=== PATIENT | male | born 1975 | race African-American/Black ===

== ENCOUNTER 2018-11-08 16:18 | Emergency (ER) | payer BC ==
[2018-11-08] MEDS ORDERED: SODIUM CHLORIDE 0.9% 1,000 ML IV STA (16:46)
--- NOTE | 2018-11-08 16:47 | ED ---
Chest Pain HPI - General Chief Complaint: Chest Pain Stated Complaint: Previous chest pains sent by Dr Time Seen by Provider: 11/08/18 16:46 Source: patient, RN notes reviewed, old records reviewed Mode of arrival: ambulatory Limitations: no limitations - History of Present Illness Initial Comments: This is a 42-year-old male the ER with chest pain, chest pain is atypical in nature. Patient has no history of heart disease. Patient was sent in by urgent care for evaluation patient does have history of diabetes nonsmoker no high cholesterol no high blood pressure, no strong family history of heart disease. Patient had chest pain and tightness last night no chest pain today. MD Complaint: chest pain - Related Data Home Medications Medication Instructions Recorded Confirmed Semaglutide [Ozempic] 0.5 mg SQ TU 11/08/18 11/08/18 metFORMIN HCL 1,000 mg PO BID 11/08/18 11/08/18 Allergies Allergy/AdvReac Type Severity Reaction Status Date / Time No Known Allergies Allergy Verified 11/08/18 16:55 Review of Systems ROS Statement: Those systems with pertinent positive or pertinent negative responses have been documented in the HPI. ROS Other: All systems not noted in ROS Statement are negative. EKG Findings - EKG Comments: EKG Findings:: EKG shows sinus rhythm rate of 70, MI 154, QRS 70, QTc 399 Past Medical History Past Medical History: Diabetes Mellitus History of Any Multi-Drug Resistant Organisms: None Reported Past Surgical History: No Surgical Hx Reported Past Psychological History: No Psychological Hx Reported Smoking Status: Current every day smoker Past Alcohol Use History: Occasional Past Drug Use History: Marijuana General Exam Limitations: no limitations General appearance: alert, in no apparent distress Head exam: Present: atraumatic, normocephalic, normal inspection Eye exam: Present: normal appearance, PERRL, EOMI. Absent: scleral icterus, conjunctival injection, periorbital swelling ENT exam: Present: normal exam, mucous membranes moist Neck exam: Present: normal inspection. Absent: tenderness, meningismus, lymphadenopathy Respiratory exam: Present: normal lung sounds bilaterally. Absent: respiratory distress, wheezes, rales, rhonchi, stridor Cardiovascular Exam: Present: regular rate, normal rhythm, normal heart sounds. Absent: systolic murmur, diastolic murmur, rubs, gallop, clicks GI/Abdominal exam: Present: soft, normal bowel sounds. Absent: distended, tenderness, guarding, rebound, rigid Extremities exam: Present: normal inspection, full ROM, normal capillary refill. Absent: tenderness, pedal edema, joint swelling, calf tenderness Back exam: Present: normal inspection Neurological exam: Present: alert, oriented X3, CN II-XII intact Psychiatric exam: Present: normal affect, normal mood Skin exam: Present: warm, dry, intact, normal color. Absent: rash Course Vital Signs 11/08/18 11/08/18 11/08/18 16:35 16:37 17:25 Temperature 98.6 F Pulse Rate 64 75 Pulse Rate [ 69 [employer] ] Respiratory 18 20 Rate Blood Pressure 115/73 121/85 O2 Sat by Pulse 98 98 Oximetry 11/08/18 20:54 Temperature 98.3 F Pulse Rate 78 Pulse Rate [ [employer] ] Respiratory 18 Rate Blood Pressure 133/79 O2 Sat by Pulse 97 Oximetry - Reevaluation(s) Reevaluation #1: Medical record reviewed no current chest pain Chest Pain MDM - MDM 39 female the ER with atypical chest pain currently no chest pain on presentation to emergency room or throughout ER stay. He does have history of diabetes made aware that he has cardiac risk factors, does not want stay in the hospital for further cardiology evaluation, patient has normal EKG normal troponin and a CT angi0 chest negative here in the ER Disposition Clinical Impression: Chest pain, Atypical chest pain Disposition: HOME SELF-CARE Condition: Good Instructions (If sedation given, give patient instructions): Chest Pain (ED) Is patient prescribed a controlled substance at d/c from ED?: No Referrals: Zeferino Grace MD [Primary Care Provider] - 1-2 days
[2018-11-08 17:26] LABS: Basophils # (A) 0.1 k/uL (0-0.2); Basophils % (A) 1 %; Eosinophils # (A) 0.4 k/uL (0-0.7); Eosinophils % (A) 4 %; HCT 47.4 % (39.0-53.0); HGB 16.2 gm/dL (13.0-17.5); Lymphocytes # (A) 2.4 k/uL (1.0-4.8); Lymphocytes % (A) 26 %; MCHC 34.3 g/dL (31.0-37.0); MCV 87.6 fL (80.0-100.0); Mean Platelet Volume 6.8; Monocytes # (A) 0.5 k/uL (0-1.0); Monocytes % (A) 6 %; Neutrophils # (A) 5.7 k/uL (1.3-7.7); Neutrophils % (A) 61 %; Platelet Count 209 k/uL (150-450); RBC 5.41 m/uL (4.30-5.90); RDW 12.5 % (11.5-15.5); WBC 9.3 k/uL (3.8-10.6)
[2018-11-08 17:35] LABS: Partial Thromboplastin Time 25.5 sec (22.0-30.0); Prothrombin Time 10.3 sec (9.0-12.0)
[2018-11-08 17:38] LABS: ALT 28 U/L (21-72); AST 17 U/L (17-59); Albumin 4.4 g/dL (3.5-5.0); Alkaline Phosphatase 55 U/L (38-126); Anion Gap 8 mmol/L; Blood Urea Nitrogen 13 mg/dL (9-20); Calcium 9.9 mg/dL (8.4-10.2); Carbon Dioxide 25 mmol/L (22-30); Chloride 106 mmol/L (98-107); Glucose 173 mg/dL (74-99); Lipase 289 U/L (23-300); Magnesium 1.6 mg/dL (1.6-2.3); Sodium 139 mmol/L (137-145); Total Bilirubin 1.2 mg/dL (0.2-1.3); Total Protein 6.8 g/dL (6.3-8.2)
--- NOTE | 2018-11-08 18:46 | CT ---
EXAMINATION TYPE: CT angio chest DATE OF EXAM: 11/08/2018 6:33 PM COMPARISON: None HISTORY: Chest pain. CT DLP: 347.4 mGycm Automated exposure control for dose reduction was used. CONTRAST: CTA scan of the thorax is performed with IV Contrast, patient injected with 45ml mL of Isovue 370, pu lmonary embolism protocol. There are 3-D post processed images.. FINDINGS: There is 5 mm subpleural noncalcified low-density nodule in the posterior right upper lobe. There is no evidence of a pulmonary mass. There is no pleural effusion. Lungs are clear of infiltrate. Heart s ize is normal. There is no pericardial effusion. There is no mediastinal adenopathy. There are no hilar masses. Thoracic aorta appears normal. There i s no aneurysm or dissection. There is normal contrast opacification of the pulmonary arteries. I see no filling defect. IMPRESSION: NEGATIVE CT ANGIOGRAM OF THE CHEST. NO EVIDENCE OF PULMONARY EMBOLISM. SMALL RIGHT UPPER LOBE PARASPI NAL SUBPLEURAL NODULE OF DOUBTFUL SIGNIFICANCE.
[2018-11-08] MEDS ORDERED: diphenhydrAMINE 50 MG/ML 1 ML VIAL IVP STA (19:35)
[2018-11-08] MEDS ORDERED: methylPREDNISolone SOD SUCCI 125 MG/2 ML VIAL IV STA (19:35)
[2018-11-08] MEDS ORDERED: FAMOTIDINE 20 MG/2 ML VIAL IV STA (19:37)
[2018-11-08 20:55] VITALS: BP 133/79; PULSE 78; RESP 18; TEMP 98.3
[2018-11-08] MEDS ORDERED: FAMOTIDINE 20 MG TAB PO SCH (21:00)
[2018-11-09] MEDS ORDERED: FAMOTIDINE 20 MG TAB PO SCH (09:00)
== END 2018-11-08 20:56 | disposition home or self-care (01) ==
LOC: EC 16:18
DX: R07.89 Other chest pain (principal); E11.9 Type 2 diabetes mellitus without complications; F17.200 Nicotine dependence, unspecified, uncomplicated; Z79.84 Long term (current) use of oral hypoglycemic drugs; Z79.899 Other long term (current) drug therapy
CPT/HCPCS: 36415; 93005; 83880; 80053; 83690; 83735; 84484; 85025; 85610; 85730; 71275; 99285; 96374; 96375 ×2; 96361 ×2; J1200; J2930; Q9967

== ENCOUNTER → 2024-01-08 | Outpatient (CLI) | payer MEDICARE ==
[2024-01-08 14:33] LABS: African American GFR (CKD) >90 (>60 ml/min/1.73 sqM); Blood Urea Nitrogen 13 mg/dL (9-20); Non-African American GFR(CKD) 79 (>60 ml/min/1.73 sqM)
[2024-01-08] MEDS: diphenhydrAMINE 50 MG CAP PO STA (16:05)
[2024-01-08 16:21] VITALS: RESP 16
[2024-01-08 16:54] VITALS: BP 117/65; PULSE 70
--- NOTE | 2024-01-08 22:03 | CT ---
EXAMINATION TYPE: CT ChestAbdPelvis w con DATE OF EXAM: 01/08/2024 COMPARISON: CT chest 11/08/2018 HISTORY: 48-year-old male abdominal pain and weight loss. E11.65 TYPE 2 DIABETES MELLITUS WITH HYPER GLYCEMIA TECHNIQUE: Contiguous axial scanning of the chest, abdomen, and pelvis performed with IV Contrast, pa tient injected with 100 mL of Isovue 300. Delayed images through the kidneys were obtained. Coronal/s agittal reconstructions performed. CT DLP: 1340 mGycm Automated exposure control for dose reduction was used. FINDINGS: Chest: The heart is normal size without pericardial effusion. Aorta normal caliber with conventional branching anatomy. No thoracic lymphadenopathy by CT size. Lungs show no consolidation or pleural effusion. Some strandy atelectasis is present at the lower yesika gs. ABDOMEN: There is a small hiatal hernia present. Some soft tissue thickening is noted at GE junction and gastr ic fundus just below, axial and 57 through 59 and no focal liver lesion or biliary dilatation. Portal venous system is patent. Gallbladder is collapsed. Adrenal glands, kidneys, spleen, and pancreas within normal limits. No dilated small bowel, free fluid, or free air. No mesenteric or retroperitoneal lymphadenopathy. Normal appendix. Oral contrast progressed to the proximal third transverse colon. There is moderate s tool burden. No pericolonic inflammatory change. Pelvis: Bladder urine distended. Prostate gland is enlarged measuring 5.8 cm wide. Motion artifact here in th e pelvis. No abnormal fluid collection in the pelvis or pelvic lymphadenopathy. Bones: Prominent motion artifact at the hips and pelvis. Mild degenerative spurring right SI joint. No osseo us destructive process. Slight dextroconvex curvature centered along the mid thoracic spine. IMPRESSION: 1. MODERATE MURAL THICKENING AT THE GE JUNCTION AND WITHIN THE GASTRIC FUNDUS JUST BELOW. FINDINGS MA Y BE DUE TO A SMALL HIATAL HERNIA AND SOFT TISSUE CROWDING. GASTRITIS OR UNDERLYING NEOPLASM NOT EXCL UDED. CORRELATE FOR ANY ASSOCIATED SYMPTOMS. DIRECT VISUALIZATION IF INDICATED. 2. PROSTATOMEGALY AT 5.8 CM WIDE. CORRELATE WITH PATIENT'S SYMPTOMS AND PSA VALUES.
== END | disposition home or self-care (01) ==
LOC: RADCTMAIN 13:57
PROVIDERS: ATTEND Family Medicine
DX: E11.65 Type 2 diabetes mellitus with hyperglycemia (principal); N40.0 Benign prostatic hyperplasia without lower urinary tract symptoms; R63.0 Anorexia; K44.9 Diaphragmatic hernia without obstruction or gangrene; R63.4 Abnormal weight loss; K22.89 Other specified disease of esophagus
CPT/HCPCS: 82565; 84520; 71260; 74177; 36415; Q9967

== ENCOUNTER 2024-03-21 09:15 | Day surgery (SDC) | payer MEDICARE, OTHER ==
[2024-03-20 10:22] VITALS: BMI 23.7
[2024-03-21 09:44] VITALS: RESP 16; TEMP 97.4
[2024-03-21] MEDS: IV FLUID CONTINUATION 1,000 ML IV ONE (09:52)
[2024-03-21] MEDS: LACTATED RINGERS 1,000 ML IV SCH (09:52)
[2024-03-21 10:11] LABS: Glucose,Whole Blood 212 mg/dL (70-110)
[2024-03-21] MEDS ORDERED: PROPOFOL 10 MG/ML 20 ML VIAL IV ONE (10:12)
[2024-03-21] MEDS ORDERED: LIDOCAINE 2% (PF) 20 MG/ML 5 ML VIAL ONE (10:12)
--- NOTE | 2024-03-21 10:18 | P.GSHP ---
History of Present Illness H&P Date: 03/21/24 Chief Complaint: Decreased appetite, weight loss, screening colonoscopy, gerd Is a 48-year-old male whose had complaints of weight loss decreased appetite gerd. He presents today for EGD and screening colonoscopy. Past Medical History Past Medical History: Diabetes Mellitus, Hyperlipidemia History of Any Multi-Drug Resistant Organisms: None Reported Past Surgical History: No Surgical Hx Reported Past Anesthesia/Blood Transfusion Reactions: No Reported Reaction Additional Past Anesthesia/Blood Transfusion Reaction / Comment(s): no blood transfusion Smoking Status: Current every day smoker Medications and Allergies Home Medications Medication Instructions Recorded Confirmed Type metFORMIN HCL [Glucophage] 750 mg PO BID 11/08/18 03/20/24 History Atorvastatin [Lipitor] 20 mg PO HS 03/20/24 03/20/24 History Allergies Allergy/AdvReac Type Severity Reaction Status Date / Time Iodinated Contrast Media Allergy Rash/Hives Verified 03/21/24 09:38 Surgical - Exam Vital Signs Temp Pulse Resp BP Pulse Ox 97.4 F L 76 16 118/75 99 03/21/24 09:43 03/21/24 09:43 03/21/24 09:43 03/21/24 09:43 03/21/24 09:43 - General well developed, well nourished, no distress - Eyes PERRL - ENT normal pinna - Neck no masses - Respiratory normal expansion - Cardiovascular Rhythm: regular - Abdomen Abdomen: soft, non tender Results - Labs Abnormal Lab Results - Last 24 Hours (Table) 03/21/24 Range/Units 10:01 POC Glucose (mg/dL) 212 H (70-110) mg/dL Assessment and Plan Assessment: Decreased appetite, weight loss, gerd. Will perform EGD and screening colonoscopy.
--- NOTE | 2024-03-21 10:44 | P.OP ---
Date of Procedure: 03/21/24 Preoperative Diagnosis: Weight loss Decreased appetite Screening colonoscopy Gerd Postoperative Diagnosis: Antral gastritis Friable esophageal mass 40 cm Normal colon Procedure(s) Performed: EGD Colonoscopy Anesthesia: MAC Surgeon: Bunny Lozada Pathology: other (Rectum esophagus) Condition: stable Disposition: PACU Description of Procedure: Patient was placed on the endoscopy table in the lateral position. He received IV sedation. The gas was placed oropharynx passed in the esophagus. At the lower esophagus there was a friable mass. The scope was placed through the GE junction into the stomach. Through the pylorus. The first and second portion of duodenum appeared normal. Scope was brought back to the antrum this was minimal Flaim. A biopsy was performed. The scope then retroflexed and the Mainer of the stomach appeared normal. Just above the GE junction the patient evidence of mucosal erosions. This was biopsied. The mucosa appeared to be edematous and very friable. The remainder of the esophagus appeared normal. The GE junction was at 40 cm. The scope was withdrawn. Next digital rectal send performed. Which revealed no abnormalities. The flexible colonoscope was then placed patient anus and passed throughout the entire colon. The ileocecal valve was visualized. The cecum, ascending and transverse colon appeared normal. The descending and sigmoid colon appeared normal. The scope was withdrawn from the patient.
[2024-03-21 10:56] LABS: Glucose,Whole Blood 185 mg/dL (70-110)
[2024-03-21 11:19] VITALS: BP 134/89; PULSE 71
== END 2024-03-21 11:50 | disposition home or self-care (01) ==
LOC: ORWHC2ENDO 09:15
PROVIDERS: ATTEND Surgery
DX: Z12.11 Encounter for screening for malignant neoplasm of colon (principal); K29.50 Unspecified chronic gastritis without bleeding; C15.9 Malignant neoplasm of esophagus, unspecified; K21.9 Gastro-esophageal reflux disease without esophagitis; E11.69 Type 2 diabetes mellitus with other specified complication; E78.5 Hyperlipidemia, unspecified; F41.9 Anxiety disorder, unspecified; Z91.041 Radiographic dye allergy status; Z87.891 Personal history of nicotine dependence; Z79.84 Long term (current) use of oral hypoglycemic drugs; Z79.899 Other long term (current) drug therapy
CPT/HCPCS: 43239; 45378; 88305; 88341; 88342

== ENCOUNTER → 2024-04-12 | Outpatient (CLI) | payer OTHER | END | disposition home or self-care (01) | LOC: RADPETMAIN 10:57 | PROVIDERS: ATTEND Family Medicine | DX: Z53.9 Procedure and treatment not carried out, unspecified reason (principal) ==

== ENCOUNTER 2024-05-06 11:25 | Day surgery (SDC) | payer MEDICARE, OTHER ==
[~2024-05-06 11:25] MED LIST: HYDROmorphone 0.5 MG/0.5 ML SYRINGE IVP PRN; Pre Op ABX Message 1 EACH MISC MISCELLANE ONE
[2024-05-06] MEDS: LACTATED RINGERS 1,000 ML IV SCH (12:20)
[2024-05-06] MEDS: IV FLUID CONTINUATION 1,000 ML IV ONE ×3 (12:20→13:46)
[2024-05-06] MEDS: LIDOCAINE 1% (10MG/ML) FOR IV START INTRADERMA PRN (12:20)
[2024-05-06] MEDS: INSULIN ASPART (NovoLOG) 100 UNIT/ML VIAL SQ ONE (12:32)
[2024-05-06] MEDS: ONDANSETRON 4 MG/2 ML VIAL IVP ONE (12:34)
[2024-05-06 12:40] LABS: Glucose,Whole Blood 263 mg/dL (70-110)
[2024-05-06] MEDS ORDERED: ePHEDrine 50 MG/ML 1 ML VIAL ONE (13:04)
[2024-05-06] MEDS ORDERED: PROPOFOL 10 MG/ML 20 ML VIAL IV ONE (13:04)
[2024-05-06] MEDS ORDERED: fentaNYL (PF) 50 MCG/ML 2 ML AMP ONE (13:04)
[2024-05-06] MEDS ORDERED: LIDOCAINE 1% INJ 10MG/ML (20 ML MDV) ONE (13:04)
[2024-05-06] MEDS ORDERED: MIDAZOLAM 2 MG/2 ML VIAL ONE (13:04)
[2024-05-06] MEDS: SODIUM CHLORIDE 0.9% 50 ML with ceFAZolin 2 GM IV ONE (13:16)
[2024-05-06] MEDS: BUPIVACAINE (PF) 0.25% 30 ML VIAL SQ ONE ×2 (13:26)
[2024-05-06] MEDS: HEPARIN SODIUM,PORCINE 100 UNIT/ML 5 ML VIAL IV ONE (13:26)
[2024-05-06 14:18] VITALS: TEMP 96.9
--- NOTE | 2024-05-06 14:23 | P.OP ---
Date of Procedure: 05/06/24 Preoperative Diagnosis: Esophageal CA Postoperative Diagnosis: Esophageal CA Procedure(s) Performed: Mediport with fluoroscopy Anesthesia: MAC Surgeon: Maru Rodríguez Pathology: none sent Condition: stable Disposition: same day Indications for Procedure: 48-year-old male presents today for Mediport placement with fluoroscopy. 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 After consultation with oncologist, plan is for chemotherapy induction. Risks, benefits and alternatives were provided to the patient. Consent was provided prior to attending the operating suite. Operative Findings: Appropriate flush and withdrawal from port site Description of Procedure: Patient was brought to the operating suite and placed in supine position on the operative table. Sedation was provided by anesthesia and the patient underwent LMA placement. Patient was then prepped and draped in regular sterile fashion. Right subclavian vein was accessed on first attempt and dark nonpulsatile blood was withdrawn. Guidewire was placed and confirmation under fluoroscopy was noted. At this point, a pocket was created just below the guidewire insertion site dilator sheath was then placed over the guidewire with catheter placed over it. Dilator sheath removed and catheter attached to port and placed in port pocket. Appropriate flush and withdrawal with saline was noted from the port and the port was secured to the prepectoralis fascia using 2-0 Prolene suture x 2. At this point Hep-Lock was introduced and appropriate flush and withdrawal was continued to be noted. Confirmation was noted under fluoroscopy that there were no kinks in the catheter. The wound was then closed with 3-0 Vicryl and 4- 0 Monocryl suture. Sterile dressing was applied. The patient was awakened in the operating suite and taken to postanesthesia care unit in stable condition.
[2024-05-06 14:29] LABS: Glucose,Whole Blood 175 mg/dL (70-110)
[2024-05-06] MEDS: hydrALAZINE HCL 20 MG/ML 1 ML VIAL IVP STA (14:43)
--- NOTE | 2024-05-06 15:10 | XR ---
EXAMINATION TYPE: XR chest 1V portable DATE OF EXAM: 05/06/2024 Comparison: None Clinical History: 48-year-old male Mediport placement Findings: Right anterior chest wall injection port with subclavian access and catheter tip at the upper SVC lev el. No residual pneumothorax. Heart borderline in size. Mild interstitial prominence may be chronic f or the patient. No alyo consolidation or pleural effusion. Impression: Right anterior chest wall injection port with subclavian access and catheter tip at the upper SVC lev el. Mild interstitial prominence; correlate to exclude mild pulmonary vascular congestion. [facility], , 05/06/2024 3:08 PM
[2024-05-06 15:46] VITALS: BP 123/78; PULSE 93; RESP 18
--- NOTE | 2024-05-07 08:36 | FL ---
EXAMINATION TYPE: FL guided central line placemt DATE OF EXAM: 05/06/2024 2:00 PM COMPARISON: Pre Operative Images if available both CT/MRI or plain film CLINICAL INDICATION: Male, 48 years old with history of ESOPHAGEAL CA; TECHNIQUE: FL guided central line placemt, multiple fluoroscopic images provided for procedure. Total fluoroscopy time: 16.3 seconds Total submitted images to PACS: 1 DAP: [id number] mGym2 Gycm2 uGym2 cGycm2 or equivalent. FINDINGS: Fluoroscopic imaging for Port-A-Cath insertion no evidence for pneumothorax. Multilevel degeneration changes of the spine. IMPRESSION: 1. No evidence for intraoperative complication. 2. Please see the operative/procedural note for further details. [facility], , 05/07/2024 8:33 AM
== END 2024-05-06 16:12 | disposition home or self-care (01) ==
LOC: OR 11:25
PROVIDERS: ATTEND Surgery
CPT/HCPCS: 71045; 77001

== ENCOUNTER → 2024-05-14 | Outpatient (CLI) | payer MEDICARE ==
--- NOTE | 2024-05-14 16:40 | CA ---
Transthoracic Echo Report Name: Zeferino Cardensa Age: 48 Gender: M : 1975 Exam Date: 05/14/2024 13:15 Exam Location: [facility] Ht (in): 73 Wt (lb): 170 Ordering Physician: Jorge Vidal MD Attending/Referring Phys: Jorge Vidal MD Director Title Mary Ellison RDCS Procedure CPT: Indications: Z01.818 ENCOUNTER FOR OTHER PREPROCEDURAL EXAMINAT Cardiac Hx: Technical Quality: Fair Contrast 1: Total Dose (mL): Contrast 2: Total Dose (mL): MEASUREMENTS (Male / Female) Normal Values 2D ECHO LV Diastolic Diameter PLAX 4.0 cm 4.2 - 5.9 / 3.9 - 5.3 cm LV Systolic Diameter PLAX 3.0 cm IVS Diastolic Thickness 1.0 cm 0.6 - 1.0 / 0.6 - 0.9 cm LVPW Diastolic Thickness 1.0 cm 0.6 - 1.0 / 0.6 - 0.9 cm LV Relative Wall Thickness 0.5 RV Internal Dim ED PLAX 2.6 cm LA Systolic Diameter LX 2.9 cm 3.0 - 4.0 / 2.7 - 3.8 cm LV Diastolic Volume MOD BP 64.4 cm??? 67 - 155 / 56 - 104 cm??? LV Systolic Volume MOD BP 32.4 cm??? 22 - 58 / 19 - 49 cm??? LV Ejection Fraction MOD BP 49.7 % >= 55 % LV Cardiac Index MOD BP 1445.9 cm???/min???m??? LV Diastolic Volume MOD 4C 54.8 cm??? LV Systolic Volume MOD 4C 28.2 cm??? LV Ejection Fraction MOD 4C 48.5 % LV Cardiac Index MOD 4C 1199.6 cm???/min???m??? LV Diastolic Length 4C 7.5 cm LV Systolic Length 4C 6.5 cm LV Diastolic Volume MOD 2C 72.6 cm??? LV Systolic Volume MOD 2C 42.8 cm??? LV Ejection Fraction MOD 2C 41.1 % LV Cardiac Index MOD 2C 1347.6 cm???/min???m??? LV Diastolic Length 2C 7.9 cm LV Systolic Length 2C 7.4 cm LA Volume 30.3 cm??? 18 - 58 / 22 - 52 cm??? LA Volume Index 15.2 cm???/m??? 16 - 28 cm???/m??? M-MODE Aortic Root Diameter MM 2.6 cm LA Systolic Diameter MM 3.1 cm LA Ao Ratio MM 1.2 AV Cusp Separation MM 1.8 cm DOPPLER AV Peak Velocity 103.7 cm/s AV Peak Gradient 4.3 mmHg AV Mean Velocity 76.1 cm/s AV Mean Gradient 2.6 mmHg AV Velocity Time Integral 17.5 cm LVOT Peak Velocity 90.2 cm/s LVOT Peak Gradient 3.3 mmHg LVOT Velocity Time Integral 18.2 cm MV Area PHT 3.1 cm??? Mitral E Point Velocity 37.3 cm/s Mitral A Point Velocity 68.3 cm/s Mitral E to A Ratio 0.5 MV Deceleration Time 246.7 ms TR Peak Velocity 182.6 cm/s TR Peak Gradient 13.3 mmHg FINDINGS Left Ventricle Left ventricular ejection fraction is estimated at 50 %.Mildly increased left ventricular wall thickness. Left ventricular cavity size normal. Mildly decreased left ventricular ejection fraction. Right Ventricle Mild right ventricular dilatation. Right ventricular systolic pressure within normal limits. Right Atrium Mild right atrial dilatation. Left Atrium Mild left atrial dilatation. Mitral Valve Structurally normal mitral valve. Mild mitral regurgitation. No mitral stenosis. Aortic Valve Trileaflet aortic valve. No aortic stenosis. No aortic regurgitation. Tricuspid Valve Structurally normal tricuspid valve. Mild tricuspid regurgitation. No tricuspid stenosis. Pulmonic Valve No pulmonic stenosis. Trace pulmonic regurgitation. No pulmonic stenosis. Pericardium No pericardial or pleural effusion. Aorta Normal size aortic root and proximal ascending aorta. CONCLUSIONS Ejection fraction is 50% Mild RV dilatation Mild mitral and tricuspid regurgitation Previewed by: Dr. Cesario Archer MD (Electronically Signed) Final Date: 14 May 2024 16:39
== END | disposition home or self-care (01) ==
LOC: RADECHMAIN 13:03
PROVIDERS: ATTEND Internal Medicine Hematology & Oncology
DX: Z01.818 Encounter for other preprocedural examination (principal); I08.1 Rheumatic disorders of both mitral and tricuspid valves
CPT/HCPCS: 93306

== ENCOUNTER 2024-06-13 20:06 | Emergency (ER) | payer MEDICARE ==
[~2024-06-13 20:06] MED LIST changes: +AMIODARONE 50 MG/ML 3 ML VIAL IV ONE; +DEXTROSE 5% IN WATER 50 ML BAG ONE; +EPINEPHrine 10 ML SYRINGE (0.1 MG/ML) ONE; -HYDROmorphone 0.5 MG/0.5 ML SYRINGE IVP PRN; -Pre Op ABX Message 1 EACH MISC MISCELLANE ONE; +SODIUM BICARB 8.4% 50 ML SYR (1 MEQ/ML) ONE; +SODIUM CHLORIDE 0.9% 1,000 ML BAG ONE
[2024-06-13] MEDS: SODIUM CHLORIDE 0.9% 1,000 ML IV STA ×2 (20:09→20:59)
[2024-06-13 20:11] LABS: Glucose,Whole Blood 581 mg/dL (70-110)
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
[2024-06-13] MEDS: ATROPINE SULFATE 0.1 MG/ML 10ML SYRINGE IV STA (20:55)
[2024-06-13] MEDS: TRANEXAMIC 1,000 MG/100ML-NACL 1,000 MG in SALINE 1 100ML.BAG IV STA (20:59)
[2024-06-13] MEDS: SODIUM CHLORIDE 0.9% 500 ML 500 ML IV STA (20:59)
[2024-06-13] MEDS: TRANEXAMIC ACID 1,000 MG in SODIUM CHLORIDE 0.9% 250 ML IV ONE (20:59)
[2024-06-13] MEDS ORDERED: SODIUM CHLORIDE 0.9% 1,000 ML IV SCH (21:00)
[2024-06-13] MEDS: NOREPINEPHRINE 4 MG in SODIUM CHLORIDE 0.9% 250 ML IV ONE (21:08)
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
[2024-06-13 21:31] LABS: Basophils % (A) 1 %; Eosinophils % (A) 0 %; HCT 33.1 % (39.0-53.0); HGB 10.1 gm/dL (13.0-17.5); Hypochromasia Marked; Lymphocytes # (A) 1.2 k/uL (1.0-4.8); Lymphocytes % (A) 43 %; MCH 29.1 pg (25.0-35.0); MCHC 30.6 g/dL (31.0-37.0); MCV 95.2 fL (80.0-100.0); Mean Platelet Volume 8.6; Monocytes # (A) 0.1 k/uL (0-1.0); Monocytes % (A) 2 %; Neutrophils # (A) 1.5 k/uL (1.3-7.7); Neutrophils % (A) 52 %; RBC 3.48 m/uL (4.30-5.90); RDW 12.7 % (11.5-15.5); WBC 2.8 k/uL (3.8-10.6)
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
[2024-06-13 21:33] LABS: Platelet Count 84 k/uL (150-450)
[2024-06-13 21:38] LABS: INR 1.8 (<1.2); Prothrombin Time 18.2 sec (10.0-12.5)
[2024-06-13 21:39] LABS: VBG PH 6.97 (7.31-7.41)
[2024-06-13] MEDS: AMPICILLIN-SULBACTAM 3 GM in SODIUM CHLORIDE 0.9% 100 ML IVPB STA (21:44)
[2024-06-13] MEDS: NOREPINEPHRINE 32 MG in SODIUM CHLORIDE 0.9% 218 ML IV ONE (21:52)
[2024-06-13 21:55] LABS: Partial Thromboplastin Time 78.8 sec (22.0-30.0)
[2024-06-13 21:58] LABS: African American GFR (CKD) 50 (>60 ml/min/1.73 sqM); Albumin 2.4 g/dL (3.5-5.0); Alcohol <10 mg/dL; Alkaline Phosphatase 66 U/L (38-126); Anion Gap 29 mmol/L; Blood Urea Nitrogen 19 mg/dL (9-20); Calcium 8.7 mg/dL (8.4-10.2); Chloride 109 mmol/L (98-107); Glucose 494 mg/dL (74-99); Non-African American GFR(CKD) 43 (>60 ml/min/1.73 sqM); Sodium 146 mmol/L (137-145); Total Bilirubin 1.1 mg/dL (0.2-1.3); Total Protein 4.2 g/dL (6.3-8.2)
[2024-06-13 21:58] LABS: Amphetamine Screen,Urine Not Detected (NotDetected); Barbiturate Screen,Urine Not Detected (NotDetected); Benzodiazepines Screen,Urine Not Detected (NotDetected); Cocaine Screen,Urine Not Detected (NotDetected); Methadone Screen, Urine Not Detected (NotDetected); Opiate Screen,Urine Not Detected (NotDetected); Oxycodone Screen, Urine Not Detected (NotDetected); Phencyclidine Screen,Urine Not Detected (NotDetected); Tricyclic Antidepressant,Urine Not Detected (NotDetected); Urn Cannabinoid Scrn Detected (NotDetected)
[2024-06-13 22:08] LABS: ALT 335 U/L (4-49); AST 447 U/L (17-59); Carbon Dioxide 8 mmol/L (22-30); Potassium 6.4 mmol/L (3.5-5.1)
[2024-06-13] MEDS: SODIUM BICARB 8.4% 50 ML SYR (1 MEQ/ML) IV STA ×2 (22:08→22:28)
[2024-06-13] MEDS: CALCIUM CHLORIDE 100 MG/ML 10 ML SYRINGE IVP STA (22:16)
[2024-06-13] MEDS: CALCIUM GLUCONATE IN NACL 2 GM in SALINE 1 100ML.BAG IVPB ONE (22:23)
[2024-06-13] MEDS: INSULIN REGULAR 100 UNIT/ML VIAL (IV) IV ONE (22:30)
[2024-06-13] MEDS: DEXTROSE 5% IN WATER 1,000 ML with SODIUM BICARB (1 MEQ/ML) 150 ML IV SCH (22:32)
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
[2024-06-13] MEDS: LACTATED RINGERS 1,000 ML BAG IV STA (22:35)
[2024-06-13] MEDS: VASOPRESSIN 60 UNIT in SODIUM CHLORIDE 0.9% 150 ML IV SCH (22:59)
[2024-06-13] MEDS: ALBUTEROL NEB (CONC) 2.5 MG/0.5 ML INHALATION STA (23:20)
[2024-06-13] MEDS ORDERED: EPINEPHrine 10 ML SYRINGE (0.1 MG/ML) ONE (23:40)
[2024-06-13] MEDS ORDERED: SODIUM BICARB 8.4% 50 ML SYR (1 MEQ/ML) ONE (23:40)
[2024-06-14 00:08] VITALS: BP 195/39; PULSE 0; RESP 0
[2024-06-14 00:38] LABS: African American GFR (CKD) 48 (>60 ml/min/1.73 sqM); Anion Gap 29 mmol/L; Blood Urea Nitrogen 19 mg/dL (9-20); Calcium 10.4 mg/dL (8.4-10.2); Carbon Dioxide 15 mmol/L (22-30); Chloride 107 mmol/L (98-107); Glucose 437 mg/dL (74-99); Non-African American GFR(CKD) 41 (>60 ml/min/1.73 sqM); Sodium 151 mmol/L (137-145)
[2024-06-14 00:53] LABS: Potassium 8.3 mmol/L (3.5-5.1)
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
[2024-06-14 05:47] VITALS: TEMP 97.7
[2024-06-14] MEDS ORDERED: AMPICILLIN-SULBACTAM 3 GM in SODIUM CHLORIDE 0.9% 100 ML IVPB SCH (06:00)
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
== END 2024-06-14 02:03 | disposition other institution (70) ==
LOC: EDBD → EC 20:06 → 2SICU 23:26 → MERGE 23:26 → UNDOADMIN 23:26 → UNDODISIN 06-14 02:03
PROC: 02HV33Z Insertion of Infusion Device into Superior Vena Cava, Percutaneous Approach (ICD-10-PCS; principal; 2024-06-13)
PROC: 3E043XZ Introduction of Vasopressor into Central Vein, Percutaneous Approach (ICD-10-PCS; 2024-06-13)
PROC: 5A1935Z Respiratory Ventilation, Less than 24 Consecutive Hours (ICD-10-PCS; 2024-06-13)
PROC: 5A12012 Performance of Cardiac Output, Single, Manual (ICD-10-PCS; 2024-06-14)
DX: I46.9 Cardiac arrest, cause unspecified (principal); J96.00 Acute respiratory failure, unspecified whether with hypoxia or hypercapnia; Z91.041 Radiographic dye allergy status
CPT/HCPCS: 36415; 70450; 70486; 71045; 71260; 72125; 72170; 74177; 80048; 80053; 80306; 80320; 82803; 83605; 84484; 85025; 85610; 85730; 86850; 86900; 86901; 92950; 93005; 94002; 94640; 96365; 96366; 96367; 96368; 96375; 99291